=== PATIENT | female | born 2000 | race Caucasian/White ===

== ENCOUNTER 2024-07-03 06:37 | Outpatient (REF) | payer OTHER, SELFPAY ==
--- OUTSIDE RECORDS SUMMARY | 2024-07-03 06:39 | XMS_ITS ---
Author Name [facility] Organization Unknown History of Medication Use Medication Directions Dispensed Refills Start Date End Date Stat us atenolol (TENORMIN) tablet 50 mg Take 1 tablet (50 mg total) by mouth daily for 7 days, THEN 2 tablets (100 mg total) daily for 40 days. 07/18/2023 09/04/2023 active cloNIDine (CATAPRES) tablet 0.1 mg TAKE ONE (1) TABLET BY MOUTH TWICE A DAY, NEEDED FOR ANXIETY/SLEEP 07/01/2023 active cetirizine (ZyrTEC) 10 MG tablet Take 1 tablet (10 mg total) by mouth. 05/09/2023 11/06/2023 active QUEtiapine (SEROquel) 25 MG tablet Take 1 tablet (25 mg total) by mouth 2 (two) times a day. 04/08/2022 active Problems Problem Status Onset Date Problem Type Date of Resolution Source Pituitary macroadenoma (HCC) active EncounterDiagnosisAct [id number] Migraine without aura and without status migrainosus, not intractable active EncounterDiagnosisAct CTT HNEMG
--- OUTSIDE RECORDS SUMMARY | 2024-07-03 06:39 | XMS_ITS | Clinical Summary ---
Author Organization [facility] Address [address] [place] [address] Care Team Providers Care Bindery Machine Setter/Set Up Operator Name Role Phone Unavailable Primary Care Provider Unavailabl e Source Comments PLEASE NOTE, if this patient is a minor, it may be UNLAWFUL to discuss sensitive information that is contained in these records (such as FAMILY PLANNING, MENTAL HEALTH or SUBSTANCE ABUSE) with the minor patient's parent or other person without the patient's specific authorization.[facility] Social History Tobacco Use Types Packs/Day Years Used Date Smoking Tobacco: Never Assessed Social Connections Answer Date Recorded Connectedness 0 11/04/2023 Financial Resource Strain Answer Date R ecorded Financial Resource Strain 0 2023 Stress Answer Date Recorded Stress 0 05/23/2023 Physical Activity Answer Date Recorded Physical Activity 0 05/23/2023 Food Insecurity Answer Date Recorded Food 0 11/10/2023 Transportation Needs Answer Date Record ed Transportation 0 05/23/2023 Housing Stability Answer Date Recorded Housing 0 05/23/2023 Safety and Environment Answer Date Kenan rded Safety 0 05/23/2023 Utilities Answer Date Recorded Utilities 0 05/23/2023 Employment Answer Date Recorded Stress 0 11/04/2023 Comments Unknown Sex and Gender Information Value Date Recorded Sex Assigned at Not on file Legal Sex Female 8:11 AM PDT Gender Identity Not on file Sexual Orientation Not on file Plan of Treatment Health Maintenance Due Date Last Done Comments Anxiety Screening 2002 HPV Screening 2002 Hepatitis C Screening 2002 Pap + HPV 2002 Tobacco Screening 2002 Chlamydia Screening 07/28/2015 Gonorrhea Screening 07/28/2015 Imm-Varicella (1 of 2 - 13+ 2-dose series) 07/28/2015 HIV Screening 2017 Imm-HPV (1 - 3-dose series) 2017 Relationship Safety Screening/Counseling 2017 Hypertension Screening (#1) 2020 Imm-DTaP/Tdap/Td (1 - Tdap) 2021 Imm-Hepatitis B (1 of 3 - 19 + 3-dose series) 2021 Cervical Cancer Screening 07/28/2023 Pap Smear 07/28/2023 [id number] (1 - 2023- season) 2023 Imm-Influenza (#1) 2023 Alcohol and Drug Screen 02/15/2024 Depression Annual Screen 02/15/2024 Cervical Ablation/Cold-Knife Conization Discontinued Cervical Cryotherapy Discontinued Colposcopy Discontinued Endometrial Biopsy Discontinued Excision/Leep Discontinued HPV Genotyping Discontinued Imm-Hepatitis A Aged Out No longer el igible based on patient's age to complete this topic Vaginal Pap Discontinued Vulvoscopy Discontinued Insurance [place]
--- OUTSIDE RECORDS SUMMARY | 2024-07-03 06:39 | XMS_ITS | Clinical Summary ---
Author Organization [facility] Address [address] [place] [id number] Care Team Providers Care Booking Manager Name Role Phone Pablito Baca MD Primary Care Provider [phone] Allergies No known active allergies Medications Medication Sig Dispensed Refills Start Date End Date Status cloNIDine (CATAPRES) tablet 0.1 mg TAKE ONE (1) TABLET BY MOUTH TWICE A DAY, NEEDED FOR ANXIETY/SLEEP 0 07/01/2023 Active Magnesium 200 MG TABS Take 1 tablet by mouth 2 (two) times a day. 0 05/09/2023 Active medroxyPROGESTERone (PROVERA) 5 MG tablet TAKE 2 TABLETS BY MOUTH DAILY FOR 10 DAYS. 0 07/14/2023 Active QUEtiapine (SEROquel) 25 MG tablet Take 1 tablet (25 mg total) by mouth 2 (two) times a day. 0 04/08/2022 Active sertraline (ZOLOFT) 25 MG tablet Take 1 tablet (25 mg total) by mouth daily. 0 05/16/2023 Active SUMAtriptan (IMITREX) 50 MG tablet Take 1 tablet (50 mg total) by mouth every 2 (two) hours as needed. 10 tablet 0 07/18/2023 Active Social History Tobacco Use Types Packs/Day Years Used Date Smoking Tobacco: Never Assessed Sex and Gender Information Value Date Recorded Sex Assigned at Female 05/19/2023 2:25 PM EDT Gender Identity Not on file Sexual Orientation Not on file Job Start Date Occupation Industry Not on file Not on file Not on file Last Filed Vital Signs Vital Sign Reading Time Taken Comments Blood Pressure 117/77 07/18/2023 9:10 AM EDT Pulse 96 07/18/2023 9:10 AM EDT Temperature 36.4 ??C (97.5 ??F) 07/18/2023 9:10 AM ED T Respiratory Rate - - Oxygen Saturation 98% 07/18/2023 9:10 AM EDT Inhaled Oxygen Concentration - - Weight 55.4 kg (122 lb 3.2 oz) 07/18/2023 9:10 A M EDT Height 149.9 cm (4' 11 ) 07/18/2023 9:10 AM EDT Body Mass Index 24.68 07/18/2023 9:10 AM EDT Plan of Treatment Health Maintenance Due Date Last Done Comments Hepatitis B Vaccines (1 of 3 - 3-dose series) 2002 Hepatitis C Screening 2002 COVID-19 Vaccine (#1) 01/26/2003 Depression Screening 2014 Gonorrhea and Chlamydia Screening 07/28/2015 Preventative Health Evaluation 2020 Cervical Cancer Screening (Pap Smear) 07/28/2023 Influenza Vaccine (#1) 2023 2, 01/29/2021, 01/16/2020, Additional history exists DTap / Tdap / Td (2 - Td or Tdap) 06/29/2033 06/30/2023 Pneumococcal Vaccine Aged Out No long er eligible based on patient's age to complete this topic RSV Ped < 20 months Aged Out No longe r eligible based on patient's age to complete this topic Care Teams Booking Manager Relationship Specialty Start Date End Date Pablito Baca MD [address] [place] [address] PCP - General Internal Medicine 05/19/23
--- OUTSIDE RECORDS SUMMARY | 2024-07-03 06:39 | XMS_ITS | Clinical Summary ---
Author Organization [address] [facility] Address [address] [place] [phone] Phone Care Team Providers Care Metal Grader Name Role Phone Kiel Burgess MD Primary Care Provider [phone] Allergies No known active allergies Medications famotidine (PEPCID) 20 mg tablet Take 1 tablet (20 mg total) by mouth 2 times daily. 4 Active cetirizine (ZyrTEC) 10 mg tablet TAKE 1 TABLET BY MOUTH EVERY DAY AT BEDTIME FOR 180 DAYS 4 Active azelastine (OPTIVAR) 0.05 % ophthalmic solution Administer 1 drop into both eyes 2 (two) times a day. 4 Active cloNIDine (CATAPRES) 0.1 mg tablet Take 1 tablet (0.1 mg total) by mouth 2 (two) times a day. 4 Active sertraline (ZOLOFT) 50 mg tablet Take 1 tablet (50 mg total) by mouth 1 (one) time each day. 4 Active OXcarbazepine (TRILEPTAL) 150 mg tablet Take 1 tablet (150 mg total) by mouth 2 (two) times a day. 3 Active magnesium oxide (MAG-OX) 400 mg (241.3 elemental magnesium) tablet Take 1 tablet (400 mg total) by mouth 2 (two) times a day. 4 Active hydrocortisone (CORTEF) 10 mg tablet Take 1 tablet (10 mg total) by mouth. 4 Active acetaminophen (TYLENOL) 325 mg tablet Take 2 tablets (650 mg total) by mouth. 4 Active hydrocortisone (CORTEF) 5 mg tablet Take 2 tabs in AM and 1 tab in after noon 2-4 PM 4 Active docusate sodium (COLACE) 100 mg capsule Take 1 capsule (100 mg total) by mouth. 4 Active senna (SENOKOT) 8.6 mg tablet Take 2 tablets (17.2 mg total) by mouth. 4 Active sodium chloride (OCEAN) 0.65 % nasal spray Administer 1 spray into each nostril. 4 Active omeprazole (PriLOSEC) [address] capsule Take 1 capsule (20 mg total) by mouth. 4 08/10/19 25 Active QUEtiapine (SEROquel) 50 mg tablet Take 1 tablet (50 mg total) by mouth at bedtime. 4 Active magnesium 200 mg tablet TAKE 1 TABLET BY MOUTH TWICE A DAY 4 Active famotidine (PEPCID) 20 mg tablet Take 1 Tablet by mouth daily. 4 Active QUEtiapine (SEROquel) 25 mg tablet Take 1 Tablet by mouth 2 times daily. Active Junel FE 1.5/30, 28, 1.5 mg-30 mcg (21)/75 mg (7) per tablet TAKE 1 TABLET BY MOUTH 1 TIME EACH DAY. 84 tablet 1 5 Active hydrOXYzine pamoate (VISTARIL) 25 mg capsule Take 1 capsule (25 mg total) by mouth. 1-2 tablets at bedtime 5 Active ibuprofen (ADVIL,MOTRIN) 800 mg tablet Take 1 tablet (800 mg total) by mouth every 8 (eight) hours if needed for mild pain or moderate pain. 4 Active tacrolimus (PROTOPIC) 0.1 % ointment APPLY TO LESIONS ON RIGHT LEG W/ CLOBETASOL TWICE A DAY NEED FOR FLARES, ALTERNATE W/ TOP STEROID 4 Active Active Problems Problem Noted Date Diagnosed Date Pituitary macroadenoma with extrasellar extension (CMS/HCC V24, CMS/FORMER[facility] V28) 06/09/2023 Overview (11/09/2023): Last Assessment & Plan: Patient started experiencing headaches about 5 or 6 years ago, they have been worse the last 1 to 2 years, she states her left eye has blurry and double vision at times. The headaches are located (behind her eyes or in the middle of her head). Last month she saw an manager diesel and states the eye exam was normal. She rates her daily headaches 9/10, headaches come and go through the day, at times associated nausea and feeling jittery. She has not noticed any growth in size of her feet, hands, no discharge from the breast. She currently goes to [employer], and October starts at [employer] for majoring in psychology and Lebanese. Patient has brain MRI 05/31/2023 that shows mixed signal intensity lobulated pituitary mass, likely pituitary macroadenoma, with extension to the suprasellar cistern and heterogeneous enhancement. Possible area of cystic degeneration or hemorrhage in the inferior aspect of the tumor. Effacement of the optic chiasm centrally and slightly to the left of midline. Deviation of the pituitary stalk superiorly. I reviewed MRI imaging on the computer with the patient and her parents, Dr. Hanna reviewed the MRI today as well. Ms. Rodriguez has worsening headaches, finding of pituitary mass, likely pituitary adenoma on brain MRI. Prolactin level was normal. Dr. Hanna is offering patient transsphenoidal resection of the pituitary mass, with ENT approach surgeon. I discussed the surgery, risks and benefits in detail with the patient and her parents, including but not limited to need for general anesthesia, potential for CSF leak or bleeding, there are major arteries that run next to the pituitary, infection, potential for no improvement in headache, possible need for radiation therapy after surgery, overnight stay in the ICU to rule out DI, hemorrhage or other issues. All questions answered. We will call to get notes from [facility], ophthalmology at [facility], and physical therapy (patient thinks she went to [facility] rehab [facility]). Thoracic back pain 06/09/2023 Overview (11/09/2023): Last Assessment & Plan: During exam patient was noted to have hyperreflexia in the left lower leg, she notes tingling in the leg on and off, patient and her mom do not recall her ever having hyperreflexia on prior exams. She has been seen at [facility] as a child for scoliosis, does not think she is ever had an MRI of her spine. She denies neck pain, had good cervical range of motion. She states she was getting mid back pain but it somewhat better after doing physical therapy the last couple months. I discussed with Dr. Hanna, she recommends we get thoracic spine MRI preop. Mechanical low back pain 12/03/2022 Other idiopathic scoliosis, thoracolumbar region 12/03/2022 Vitamin D deficiency 04/14/2022 Asthma 12/25/2021 Bipolar 1 disorder ([facility] V24, [facility] V28) Encounters Date Type Department Care Team Description 05/01/2024 12:30 PM EDT Consult Orthopedics - [place] [address] [place], [place] [phone] Venkata Singer PA Patellofemoral pain syndrome of both knees (Primary Dx); Pain in chavis, unspecified laterality 05/01/2024 11:40 AM EDT - 05/01/2024 11:59 PM EDT Hospital Encounter XRAY - [facility] [address] [place], [place] [phone] Pain in both knees, unspecified chronicity Discharge Disposition: Home or Self Care from Last 3 Months Immunizations Name Administration Dates Next Due Hep B, Unspecified 07/01/2023 Hepatitis A Pediatric (Havri x; Vaqta) 12mo to less than 19yo 01/29/2021,01/16/2020 Influenza Quadravalent, MDCK , 0.5ml, preservative free (Flucelvax) 6mo and older 12/25/2021 Influenza trivalent, 0.5mL, preservative free (Fluarix; FluLaval; Fluzone) ages 6mo and older (Afluria) 3 years and older 01/29/2021,01/16/2020,03/22/2019,01/15 Influenza, Unspecified 03/06/2023 Measles 07/01/2023 Meningococcal B, Recombinant (Bexsero) 16yo to less than 24yo 01/29/2021,01/16/2020 Meningococcal MCV4P 01/16/2020 Mumps 07/01/2023 Rubella 07/01/2023 Tdap Tetanus diptheria acell ular pertussis (Boostrix; Adacel) 7yo and older 06/30/2023 Varicella live (Varivax) 12m o and older 07/01/2023 Surgical History Surgery Date Site/Laterality Comments SMALL INTESTINE SURGERY PROCEDURE:SMALL INTESTINE SURGERY WISDOM TOOTH EXTRACTION PROCEDURE:WISDOM TOOTH EXTRACTION TONSILLECTOMY PROCEDURE:TONSILLECTOMY TONSILLECTOMY PROCEDURE: HISTORICAL TONSILLECTOMY OTHER SURGICAL HISTORY PROCEDURE: HISTORY OTHER; COMMENT: Intestinal surgey as a baby Medical History Medical History Date Comments Brain tumor ([facility] V24, [facility] V28) DX:Brain tumor ([facility]) Anxiety disorder DX:Anxiety diso rder Mild intermittent asthma, uncomplicated DX:Mild intermittent asthma, uncomplicated Depression DX:Depression Iron deficiency anemia DX:Iron d eficiency anemia Memory changes DX:Memory change s Disorientation DX:Disorientatio n Double vision DX:Double vision Blurred vision DX:Blurred visio n Anemia DX:Anemia Abdominal pain DX:Abdominal aleksandra n Change in bowel habits DX:Change in bowel habits Bipolar 1 disorder ([facility] V24, [facility] V28) 12/25/2021 DX:Bipolar 1 disorder ([facility]) Family History Medical History Relation Name Comments No Known Problems Father No Known Problems Mother Breast cancer Neg Hx Colon cancer Neg Hx Relation Name Status Comments Father Mother Social History Tobacco Use Types Packs/Day Years Used Date Smoking Tobacco: Never Smokeless Tobacco: Never Tobacco Cessation:Counseling Given: Not Answered Alcohol Use Standard Drinks/Week Comments Yes 0 (1 standard drink = 0.6 oz pur e alcohol) Housing Instability Answer Date Recorde d Are you worried that in the next 2 months you may not have stable housing? No 12/23/2023 Food Access & Nutrition Answer Date Rec orded Do you have access to a vari ety of food including fruits and vegetables? Yes 12/23/2023 Health Literacy Answer Date Recorded How often do you need to hav e someone help you when you read instructions, pamphlets, or other written material from your doctor or pharmacy? Never 12/23/2023 Caregiver: How often do you need to have someone help you when you read instructions, pamphlets, or other written material from your doctor or pharmacy? Not on file 12/23/2023 Financial Risk Answer Date Recorded How hard is it for you to pa y for the very basics like food, housing, medical care, and air conditioning / heating? Not asked 12/23/2023 Transportation Answer Date Recorded Has the lack of transportati on kept you from meetings, work, or from getting things needed for daily living? Not asked 12/23/2023 Has the lack of transportati on kept you from medical appointments or from getting medications? Unable to respond 12/23/2023 Social Isolation Answer Date Recorded How often do you feel lonely or isolated from those around you? Sometimes 12/23/2023 Food Risk Answer Date Recorded Within the past 12 months we worried whether our food would run out before we got money to buy more. Never true 12/23/2023 Within the past 12 months th e food we bought just didn't last and we didn't have money to get more. Never true 12/23/2023 Dependent Care Answer Date Recorded Do you need help finding or paying for care for your loved ones. For example, child care center assistant director or elderly care for an older adult? No 12/23/2023 Education Answer Date Recorded Do you think completing more education or training, like finishing a GED, going to college, or learning a trade, would be helpful for you? N/A 12/23/2023 Employment and Income Answer Date Recor ded During the last four weeks, have you been actively looking for work? Unable to respond 12/23/2023 Living Situation Answer Date Recorded What is your living situation? 1 02/21/2023 Comments No Sex and Gender Information Value Date Recorded Sex Assigned at Not on file Legal Sex Female 1:31 PM EST Gender Identity Not on file Sexual Orientation Not on file Obstetrics History Last Filed Vital Signs Vital Sign Reading Time Taken Comments Blood Pressure 114/73 02/16/2024 2:34 PM EST Pulse 66 02/16/2024 2:34 PM EST Temperature 36.6 ??C (97.9 ??F) 02/16/2024 2:34 PM ES T Respiratory Rate 14 05/01/2024 12:39 PM EDT Oxygen Saturation 99% 02/16/2024 2:34 PM EST Inhaled Oxygen Concentration - - Weight 55.8 kg (123 lb) 05/01/2024 12:39 PM EDT Height 152.4 cm (5') 05/01/2024 12:39 PM EDT Body Mass Index 24.02 05/01/2024 12:39 PM EDT Plan of Treatment Upcoming Encounters Date Type Department Care Team (Late st Contact Info) Description 07/06/2024 9:45 AM EDT Office Visit Orthopedics - [facility] [address] [place] [phone] Venkata Singer PA [address] [place], [place] 07/12/2024 9:00 AM EDT Office Visit Internal Medicine - [facility] [address] [place] [phone] Abhilash Lenz PA [address] [place] [address] Health Maintenance Due Date Last Done Comments HPV Vaccines (1 - 3-dose series) 2017 Pneumococcal Vaccine: Pediatrics (0 to 5 Years) and At-Risk Patients (6 to 64 Years) (1 of 2 - PCV) 2021 Annual Well Child Visit (3-21 years old) 12/25/2022 12/25/2021 Cervical Cancer Screening: Pap Smear 07/28/2023 Hepatitis B Vaccines (2 of 3 - 19+ 3-dose series) 07/29/2023 07/01/2023 COVID-19 Vaccine ( - season) 2023 09/11/2021, 02/13/2021, 01/16/2021 Gonorrhea/Chlamydia Screening 12/08/2023 12/07/2022 Influenza Vaccine (Season Ended) 2024 03/06/2023, 12/25/2021, 01/29/2021, Additional history exists Depression Screening 12/22/2024 12/23/2023 Social Influencers of Health Screening 12/22/2024 12/23/2023 DTaP,Tdap,and Td Vaccines (2 - Td or Tdap) 06/29/2033 06/30/2023 Meningococcal ACWY Vaccine Completed 01/16/2020 Hepatitis A Vaccines Completed 01/29/2021, 01/16/20 Meningococcal B Vaccine Completed 01/29/2021, 01/15 HIV Screening Completed 12/07/2022 Hepatitis C Screening Completed 12/07/2022 Varicella Vaccines Aged Out 07/01/2023 No longer eligible based on patient's age to complete this topic HIB Vaccines Aged Out No longer eligi ble based on patient's age to complete this topic IPV Vaccines Aged Out No longer eligi ble based on patient's age to complete this topic MMR Vaccines Aged Out No longer eligi ble based on patient's age to complete this topic RSV Immunization Patients Under 20 months Aged Out No longer eligible based on patient's age to complete this topic Procedures Procedure Name Priority Date/Time Associated Diagnosis Comments XR KNEE 4+ VIEWS BILAT Routine 05/01/2024 11:51 AM EDT Pain in both knees, unspecified chronicity HEPATITIS C SCREENING Routine 12/07/2022 HIV SCREENING Routine 12/07/2022 GONORRHEA/CHLAMYDIA SCRREENING Routine 12/07/2022 from Last 3 Months or Most Recently Relevant to Health Maintenance Results * XR Knee 4+ Views bilat (05/01/2024 11:51 AM EDT) Anatomical Region Laterality Modality Lower Extremities, Knee [facility]ilateral [facility] 05/01/2024 10:4 5 PM EDT Impressions 05/01/2024 10:47 PM EDT No clear source of knee pain identified. POS - [id number] -------- FINAL REPORT -------- Dictated By: Deneen Williamson Dictated Date: 05/01/2024 22:45 ET Assigned Physician: Deneen Williamson Reviewed and Electronically Signed By: Deneen Williamson Signed Date: 05/01/2024 22:47 ET Workstation ID: [id number] Transcribed By: Self Edit Transcribed Date: 05/01/2024 22:45 ET Narrative 05/01/2024 10:47 PM EDT EXAM: Bilateral knee x-ray HISTORY: Bilateral knee pain. COMPARISON: None VIEWS: ??4 views of both knees performed, AP view performed weightbearing. FINDINGS: Tricompartment joint spaces are maintained. ??No evidence of an acute fracture or malalignment. ??No destructive bone lesion. ??No joint effusions. Procedure Note Deneen Williamson MD - 05/01/2024 EXAM: Bilateral knee x-ray HISTORY: Bilateral knee pain. COMPARISON: None VIEWS: 4 views of both knees performed, AP view performedweightbearing. FINDINGS: Tricompartment joint spaces are maintained. No evidence of an acutefracture or malalignment. No destructive bone lesion. No jointeffusions. IMPRESSION: No clear source of knee pain identified. POS - [id number] -------- FINAL REPORT -------- Dictated By: Deneen Williamson Dictated Date: 05/01/2024 22:45 ET Assigned Physician: Deneen Williamson Reviewed and Electronically Signed By: Deneen Williamson Signed Date: 05/01/2024 22:47 ET Workstation ID: [id number] Transcribed By: Self Edit Transcribed Date: 05/01/2024 22:45 ET Venkata GAVIN IMG XR PROCEDURES Final Result * HIV Screening (12/07/2022) HIV Screening Abstracted Historical Provider HEALTH MAINTENANCE Final Result * Hepatitis C Screening (12/07/2022) Hepatitis C Screening Abstracted Historical Provider HEALTH MAINTENANCE Final Result * Gonorrhea/Chlamydia Screening (12/07/2022) Gonorrhea/Chla mydia Screening Abstracted [facility] Provider HEALTH MAINTENANCE Final Result from Last 3 Months or Most Recently Relevant to Health Maintenance Insurance [facility] Care Teams Metal Grader Relationship Specialty Start Date End Date Kiel Burgess MD [address] [place] [phone] PCP - General Internal Medicine 08/11/21
--- OUTSIDE RECORDS SUMMARY | 2024-07-03 06:39 | XMS_ITS | Clinical Summary ---
Author Organization [facility] Address [address] [id number] Care Team Providers Care Tank Car Repairer Name Role Phone Kiel Burgess MD Primary Care Provider [phone] Allergies No known active allergies Medications QUEtiapine (SEROquel) 25 mg tablet 11/20/2022 Active OXcarbazepine (Trileptal) 150 mg tablet Take 150 mg by mouth in the morning and at bedtime. 10/20/2022 Active medroxyPROGESTE Tito (Depo-Provera) 150 mg/mL injection INJECT 1 ML INTO THE MUSCLE EVERY 3 MONTHS 10/21/2022 Active Active Problems Problem Noted Date Diagnosed Date Mechanical low back pain 12/03/2022 Other idiopathic scoliosis, thoracolumbar region 12/03/2022 Family History Medical History Relation Name Comments Cancer Grandmother Annette Allergy (severe) Mother Low Rodriguez Allergy (severe) Mother's Brother Siddeqq Haqq Allergy (severe) Sister Tyesha barronqq Relation Name Status Comments Grandmother Annette Mother Low Rodriguez Mother's Brother Siddeqq Haqq Sister Tyesha barronqq Social History Tobacco Use Types Packs/Day Years Used Date Smoking Tobacco: Never Smokeless Tobacco: Never Tobacco Cessation:Counseling Given: Not Answered Comments No Sex and Gender Information Value Date Recorded Sex Assigned at Female 11/24/2021 12:38 AM EDT Legal Sex Female 12:38 AM EDT Gender Identity Not on file Sexual Orientation Not on file Last Filed Vital Signs Vital Sign Reading Time Taken Comments Blood Pressure - - Pulse - - Temperature - - Respiratory Rate - - Oxygen Saturation - - Inhaled Oxygen Concentration - - Weight 55.8 kg (123 lb) 01/14/2023 1:33 PM EST Height 153.4 cm (5' 0.4 ) 01/14/2023 1:33 PM EST Body Mass Index 23.7 01/14/2023 1:33 PM EST Plan of Treatment Not on file Insurance [place] [address] Care Teams Tank Car Repairer Relationship Specialty Start Date End Date Kiel Burgess MD [address] [address] PCP - General Internal Medicine 11/23/22
== END 2024-07-03 06:38 | disposition home or self-care (01) ==
LOC: HO.UMASIMG 06:37
PROVIDERS: Visit Provider Nurse Practitioner
DX: Z13.89 Encounter for screening for other disorder (principal)